=== PATIENT | female | born 1940 | race Asian ===

== ENCOUNTER → 2021-04-10 | Outpatient (CLI) | payer MEDICARE | END | disposition home or self-care (01) | LOC: RADPV 08:51 | PROVIDERS: ATTEND Internal Medicine | DX: Z13.820 Encounter for screening for osteoporosis (principal); M85.88 Other specified disorders of bone density and structure, other site; M81.0 Age-related osteoporosis without current pathological fracture | CPT/HCPCS: 77080 ==

== ENCOUNTER 2021-10-10 11:09 | Emergency (ER) | payer MEDICARE, MEDICAID ==
[~2021-10-10] VITALS: Ht 152.4 cm; Wt 54.5 kg
[2021-10-10] MEDS ORDERED: METF-1211 PO (11:14)
[2021-10-10] MEDS ORDERED: LOSA-381 PO (11:14)
[2021-10-10 12:42] LABS: GLUCOSE,POINT OF CARE 79 MG/DL (70-110)
[2021-10-10] MEDS ORDERED: ACETAMINOPHEN 500 MG TABLET PO ONE (14:15)
[2021-10-10 14:41] LABS: CALCIUM, TOTAL 10.2 mg/dL (8.8-10.5); CREATININE 1.37 mg/dL (0.60-1.30); POTASSIUM 4.1 mmol/L (3.5-5.1)
[2021-10-10 14:49] LABS: ALBUMIN 3.9 g/dL (3.4-5.0); BILIRUBIN,TOTAL 0.6 mg/dL (0.1-1.0); TOTAL PROTEIN, SERUM 8.2 g/dL (6.4-8.2)
[2021-10-10] MEDS ORDERED: ACET-2123 PO (15:04)
[2021-10-10] MEDS ORDERED: LOSA100T2 PO (15:04)
[2021-10-10 15:51] VITALS: BP 133/74
== END 2021-10-10 15:53 | disposition home or self-care (01) ==
LOC: EMS 11:14
DX: I10 Essential (primary) hypertension (principal); R51.9 Headache, unspecified; E11.9 Type 2 diabetes mellitus without complications; Z79.84 Long term (current) use of oral hypoglycemic drugs; Z79.899 Other long term (current) drug therapy
CPT/HCPCS: 80053; 82962; 84484; 99285